=== PATIENT | male | born 1980 | race Caucasian/White ===

== ENCOUNTER 2016-09-24 07:44 | Emergency (ER) | payer MEDICAID ==
[~2016-09-24] VITALS: Ht 185.4 cm; Wt 84.2 kg
[2016-09-24 07:46] VITALS: BP 130/85
[2016-09-24] MEDS ORDERED: KETOROLAC 30 MG/1 ML ONE (08:10)
[2016-09-24] MEDS ORDERED: KETOROLAC 30 MG/1 ML IM ONE (08:30)
== END 2016-09-24 08:28 | disposition home or self-care (01) ==
LOC: ED 08:22
DX: S76.212A Strain of adductor muscle, fascia and tendon of left thigh, initial encounter (principal); Y93.79 Activity, other specified sports and athletics; Y93.89 Activity, other specified; Y99.8 Other external cause status; Y92.328 Other athletic field as the place of occurrence of the external cause
CPT/HCPCS: 96372; 99283; J1885